=== PATIENT | male | born 1980 | race Native Hawaiian/Other Pacific Islander ===

== ENCOUNTER 2016-10-29 10:56 | Emergency (ER) | payer OTHER ==
[~2016-10-29] VITALS: Ht 188 cm; Wt 109.8 kg
[2016-10-29 11:23] VITALS: TEMP 98
[2016-10-29 12:48] VITALS: BP 148/90
== END 2016-10-29 12:48 | disposition home or self-care (01) ==
LOC: ED 10:56
DX: S29.012A Strain of muscle and tendon of back wall of thorax, initial encounter (principal); M54.9 Dorsalgia, unspecified
CPT/HCPCS: 99283